=== PATIENT | female | born 1960 | race Caucasian/White ===

== ENCOUNTER 2023-12-24 22:08 | Inpatient (IN) | payer OTHER ==
[~2023-12-24] VITALS: Ht 165.1 cm; Wt 71.7 kg
[2023-12-24 22:44] LABS: BASOPHILS % (AUTO) 0.9 % (0.0-2.0); HEMATOCRIT 38 % (33-45); HEMOGLOBIN 12.9 g/dL (11.5-14.8); LYMPHOCYTES % (AUTO) 40.4 % (20.0-44.0); MEAN CORPUSCULAR HEMOGLOBIN 29 PG (26.0-33.0); MEAN CORPUSCULAR HGB CONC 34 g/dl (31.0-36.0); MEAN CORPUSCULAR VOLUME 84 fL (82-100); MONOCYTES # (AUTO) 0.3 K/uL (0.1-1.30); MONOCYTES % (AUTO) 5.8 % (2.0-12.0); NEUTROPHILS # (AUTO) 2.6 K/uL (1.8-8.9); NEUTROPHILS % (AUTO) 52.9 % (43.0-81.0); PLATELET COUNT (AUTO) 297 K/uL (150-450); RED BLOOD CELL COUNT(AUTO) 4.49 MIL/uL (4.0-5.2); RED CELL DISTRIBUTION WIDTH 13.7 % (11.5-15.0)
[2023-12-24 22:52] LABS: CREATININE 0.8 mg/dL (0.6-1.3); POTASSIUM 3.5 mmol/L (3.5-5.1)
[2023-12-24] MEDS ORDERED: HYDROCODONE/APAP 5/325MG TABLET ONE (22:53)
[2023-12-24] MEDS: HYDROCODONE/APAP 5/325MG TABLET PO ONE (23:04)
[2023-12-24 23:06] LABS: ALBUMIN 3.8 g/dL (3.4-5.0); BILIRUBIN,TOTAL 0.4 mg/dL (0.2-1.0); TOTAL PROTEIN, SERUM 7.8 g/dL (6.4-8.2)
[2023-12-25] MEDS ORDERED: KETOROLAC TROMETHAMINE INJ 30 MG/ML VIAL ONE (01:14)
[2023-12-25] MEDS ORDERED: ASPIRIN 325 MG TABLET ONE (01:15)
[2023-12-25] MEDS: ASPIRIN 325 MG TABLET PO ONE (01:51)
[2023-12-25] MEDS: KETOROLAC TROMETHAMINE INJ 30 MG/ML VIAL IV ONE (01:51)
[2023-12-25] MEDS ORDERED: ZOLPIDEM TARTRATE 5 MG TABLET PO PRN (02:00)
[2023-12-25] MEDS ORDERED: ONDANSETRON HCL/PF 4 MG/2 ML VIAL IVP PRN (02:00)
[2023-12-25] MEDS ORDERED: MAG HYDROX/AL HYDROX/SIMETH 30 ML UDC PO PRN (02:00)
[2023-12-25] MEDS ORDERED: MAGNESIUM HYDROXIDE 30 ML UDC PO PRN (02:00)
[2023-12-25] MEDS ORDERED: ACETAMINOPHEN 325 MG TABLET PO PRN (02:00)
[2023-12-25] MEDS ORDERED: Z GUARD REMEDY 4 OZ OINT TP PRN (02:00)
[2023-12-25] MEDS: MORPHINE SULFATE INJ 2 MG/ML DISP.SYRIN IV PRN (04:25)
[2023-12-25 06:18] VITALS: BP 111/76; TEMP 98.1; O2SAT 97
[2023-12-25 07:30] VITALS: BP 96/72; TEMP 98.6; O2SAT 96
[2023-12-25] MEDS ORDERED: OMEP40CA21 PO (08:09)
[2023-12-25] MEDS ORDERED: ATOR10TA PO (08:09)
[2023-12-25] MEDS ORDERED: ERGO500093 PO (08:09)
[2023-12-25] MEDS ORDERED: GLIM1TAB18 PO (08:09)
[2023-12-25] MEDS ORDERED: CLOT15CR27 TP (08:09)
[2023-12-25] MEDS ORDERED: HYDR25TA4 PO (08:09)
[2023-12-25] MEDS ORDERED: GABA300C PO (08:09)
[2023-12-25] MEDS ORDERED: HYDR-500 PO (08:09)
[2023-12-25] MEDS ORDERED: TRAZ-257 PO (08:09)
[2023-12-25] MEDS: ASPIRIN 81 MG TAB.CHEW PO SCH (09:00)
[2023-12-25] MEDS: GLIMEPIRIDE 1 MG TABLET PO SCH (09:41)
[2023-12-25] MEDS: HYDROCHLOROTHIAZIDE 25 MG TABLET PO SCH (09:42)
[2023-12-25] MEDS ORDERED: TRAZODONE 50 MG TABLET PO PRN (10:00)
[2023-12-25] MEDS: METOPROLOL TARTRATE 50 MG TABLET PO SCH (10:00)
[2023-12-25] MEDS: METOPROLOL TARTRATE INJ 5 MG/5 ML AMPUL IVP PRN (12:45)
[2023-12-25] MEDS ORDERED: NITROGLYCERIN 0.4 MG/TAB BOTTLE ONE ×2 (12:47→12:48)
[2023-12-25] MEDS ORDERED: IV NS 0.9% 250 ML IV ONE (12:48)
[2023-12-25] MEDS ORDERED: CT SWABBABLE VALVE TRANS SET 1 EA INFUS.SET MC ONE (12:49)
[2023-12-25] MEDS ORDERED: IOHEXOL-350 100 ML VIAL IV ONE (12:49)
[2023-12-25] MEDS ORDERED: METOPROLOL TARTRATE INJ 5 MG/5 ML AMPUL ONE (12:49)
[2023-12-25] MEDS: NITROGLYCERIN 0.4 MG/TAB BOTTLE SL ONE (12:56)
[2023-12-25] MEDS ORDERED: ASPI-1169 PO (14:08)
[2023-12-25 16:10] VITALS: BP 90/64; TEMP 99.1; O2SAT 98
[2023-12-25] MEDS: PANTOPRAZOLE 40 MG TABLET.DR PO SCH (16:22)
[2023-12-25 20:00] VITALS: BP 103/74; TEMP 98.1; O2SAT 96
[2023-12-25] MEDS: GABAPENTIN 300 MG CAPSULE PO SCH (21:40)
[2023-12-25] MEDS: ATORVASTATIN 10 MG TABLET PO SCH (21:40)
[2023-12-26] VITALS: BP 107/73; TEMP 98.1; O2SAT 98
[2023-12-26 04:00] VITALS: BP 140/78; TEMP 98.4; O2SAT 96
[2023-12-26 07:15] LABS: BASOPHILS % (AUTO) 0.7 % (0.0-2.0); HEMATOCRIT 36 % (33-45); HEMOGLOBIN 12.2 g/dL (11.5-14.8); LYMPHOCYTES # (AUTO) 1.7 K/uL (0.8-4.8); LYMPHOCYTES % (AUTO) 39.7 % (20.0-44.0); MEAN CORPUSCULAR HEMOGLOBIN 29 PG (26.0-33.0); MEAN CORPUSCULAR HGB CONC 35 g/dl (31.0-36.0); MEAN CORPUSCULAR VOLUME 83 fL (82-100); MONOCYTES # (AUTO) 0.2 K/uL (0.1-1.30); MONOCYTES % (AUTO) 5.2 % (2.0-12.0); NEUTROPHILS # (AUTO) 2.4 K/uL (1.8-8.9); NEUTROPHILS % (AUTO) 54.4 % (43.0-81.0); PLATELET COUNT (AUTO) 284 K/uL (150-450); RED BLOOD CELL COUNT(AUTO) 4.26 MIL/uL (4.0-5.2); RED CELL DISTRIBUTION WIDTH 13.6 % (11.5-15.0); WHITE BLOOD COUNT (AUTO) 4.4 K/uL (4.3-11.0)
[2023-12-26 07:34] LABS: CALCIUM, SERUM 7.3 mg/dL (8.5-10.1); CREATININE 0.8 mg/dL (0.6-1.3); MAGNESIUM 2.1 mg/dL (1.8-2.4); PHOSPHORUS 5.5 mg/dL (2.5-4.9); POTASSIUM 3.5 mmol/L (3.5-5.1)
[2023-12-26 08:28] VITALS: BP 92/59; TEMP 98.1; O2SAT 97
[2023-12-26] MEDS: ASPIRIN 81 MG TAB.CHEW PO SCH (08:43)
[2023-12-26 08:44] VITALS: BP 135/67
== END 2023-12-26 13:30 | disposition home or self-care (01) | DRG 206 ==
LOC: ER 22:10 → TELE 12-25 02:05 → MED 12-26 08:46
PROVIDERS: ADMIT Nurse Practitioner Acute Care; ATTEND Nurse Practitioner Acute Care
DX: M94.0 Chondrocostal junction syndrome [Tietze] (principal); I12.9 Hypertensive chronic kidney disease with stage 1 through stage 4 chronic kidney disease, or unspecified chronic kidney disease; N18.30 Chronic kidney disease, stage 3 unspecified; E11.22 Type 2 diabetes mellitus with diabetic chronic kidney disease; Z79.84 Long term (current) use of oral hypoglycemic drugs
CPT/HCPCS: 36415; 70450-TC; 71045-TC; 75574; 80048-TC; 80053-TC; 80061-TC; 83735-TC; 83880; 84100-TC; 84484-TC; 85025-TC; 85378-TC; 93307-TC; G0378; J1885; J2270; J3490; J7050; Q9967